=== PATIENT | female | born 1995 | race Caucasian/White ===

== ENCOUNTER 2018-11-23 20:00 | Emergency (ER) | payer SELFPAY ==
[2018-11-23] MEDS ORDERED: Ketorolac 30 MG/ML SDV IM ONE (22:05)
--- NOTE | 2018-11-23 22:09 | EDM.PDOC ---
<Ramona Simons - Last Filed: 11/23/18 22:53> ED HPI GENERAL MEDICAL PROBLEM - General Chief Complaint: Chest Pain Stated Complaint: CHEST PAIN Time Seen by Provider: 11/23/18 20:41 Source of Information: Reports: Patient History Limitations: Reports: No Limitations - History of Present Illness Onset: Today, Sudden Duration: Hour(s): (1 hour ago) Location: Reports: Chest Quality: Reports: Ache Severity: Mild Improves with: Reports: None Worsens with: Reports: None Associated Symptoms: Reports: Other (left arm pain). 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 [No Known Home Meds] 11/23/18 [History] Past Medical History - Past Health History Medical/Surgical History: Denies Medical/Surgical History Social & Family History - Tobacco Use Smoking Status *Q: Never Smoker - Caffeine Use Caffeine Use: Reports: Coffee - Recreational Drug Use Recreational Drug Use: No ED ROS GENERAL - Review of Systems Review Of Systems: See Below Constitutional: Reports: No Symptoms HEENT: Reports: No Symptoms Respiratory: Reports: No Symptoms Cardiovascular: Reports: Chest Pain. Denies: Blood Pressure Problem, Dyspnea on Exertion Endocrine: Reports: No Symptoms GI/Abdominal: Reports: No Symptoms : Reports: No Symptoms Musculoskeletal: Reports: No Symptoms Skin: Reports: No Symptoms Neurological: Reports: No Symptoms Psychiatric: Reports: Anxiety Hematologic/Lymphatic: Reports: No Symptoms Immunologic: Reports: No Symptoms ED EXAM, GENERAL - Physical Exam Exam: See Below Exam Limited By: No Limitations General Appearance: Alert, WD/WN, No Apparent Distress Ears: Normal External Exam, Normal Canal, Hearing Grossly Normal, Normal TMs Ear Exam: Bilateral Ear: Auricle Normal, Canal Normal, TM normal Nose: Normal Inspection, Normal Mucosa, No Blood Throat/Mouth: Normal Inspection, Normal Lips, Normal Teeth, Normal Gums, Normal Oropharynx, Normal Voice, No Airway Compromise Head: Atraumatic, Normocephalic Neck: Normal Inspection, Supple, Non-Tender, Full Range of Motion Respiratory/Chest: No Respiratory Distress, Lungs Clear, Normal Breath Sounds, No Accessory Muscle Use, Chest Non-Tender Cardiovascular: Normal Peripheral Pulses, Regular Rate, Rhythm, No Edema, No Gallop, No JVD, No Murmur, No Rub GI/Abdominal: Normal Bowel Sounds, Soft, Non-Tender, No Organomegaly, No Distention, No Abnormal Bruit, No Mass (Female) Exam: Deferred Back Exam: Normal Inspection, Full Range of Motion, NT Extremities: Normal Inspection, Normal Range of Motion, Non-Tender, Normal Capillary Refill, No Pedal Edema Neurological: Alert, Oriented, CN II-XII Intact, Normal Cognition, Normal Gait, Normal Reflexes, No Motor/Sensory Deficits Psychiatric: Normal Affect, Normal Mood Skin Exam: Warm, Dry, Intact, Normal Color, No Rash Lymphatic: No Adenopathy EKG INTERPRETATION EKG Date: 11/23/18 Time: 21:34 Rhythm: NSR [place]: Normal P-Wave: Present QRS: Normal ST-T: Normal QT: Normal Comparison: NA - No Prior EKG (NSR no stemi) Course - Vital Signs Last Recorded V/S: Last Vital Signs Temp 98.8 F 11/23/18 20:08 Pulse 93 11/23/18 20:08 Resp 24 H 11/23/18 20:08 BP 130/97 H 11/23/18 20:08 Pulse Ox - Orders/Labs/Meds Labs: Laboratory Tests 11/23/18 11/23/18 11/23/18 Range/Units 21:00 21:40 21:40 WBC 8.07 (3.98-10.04) K/mm3 RBC 4.32 (3.98-5.22) M/mm3 Hgb 13.3 (11.2-15.7) gm/L Hct 38.1 (34.1-44.9) % MCV 88.2 (79.4-94.8) fl MCH 30.8 (25.6-32.2) pg MCHC 34.9 (32.2-35.5) g/dl RDW Std Deviation 38.4 (36.4-46.3) fL Plt Count 324 (182-369) K/mm3 MPV 8.0 L (9.4-12.3) fl Neut % (Auto) 52.7 (34.0-71.1) % Lymph % (Auto) 35.4 (19.3-51.7) % [place] % (Auto) 10.2 (4.7-12.5) % Eos % (Auto) 1.4 (0.7-5.8) Baso % (Auto) 0.2 (0.1-1.2) % Neut # (Auto) 4.25 (1.56-6.13) K/mm3 Lymph # (Auto) 2.86 (1.18-3.74) K/mm3 [place] # (Auto) 0.82 H (0.24-0.36) K/mm3 Eos # (Auto) 0.11 (0.04-0.36) K/mm3 Baso # (Auto) 0.02 (0.01-0.08) K/mm3 Sodium 142 (136-145) mEq/L Potassium 3.6 (3.5-5.1) mEq/L Chloride 106 (98-107) mEq/L Carbon Dioxide 27 (21-32) mEq/L Anion Gap 12.6 (5-15) BUN 12 (7-18) mg/dL Creatinine 0.6 (0.55-1.02) mg/dL Est Cr Clr Drug Dosing 102.95 mL/min Estimated GFR (MDRD) > 60 (>60) mL/min BUN/Creatinine Ratio 20.0 H (14-18) Glucose 92 (74-106) mg/dL Calcium 9.3 (8.5-10.1) mg/dL Total Bilirubin 0.3 (0.2-1.0) mg/dL AST 13 L (15-37) U/L ALT 18 (14-59) U/L Alkaline Phosphatase 66 (46-116) U/L Troponin I < 0.017 (0.00-0.056) ng/mL Total Protein 7.4 (6.4-8.2) g/dl Albumin 3.8 (3.4-5.0) g/dl Globulin 3.6 gm/dL Albumin/Globulin Ratio 1.1 (1-2) Urine HCG, Qual Negative (NEGATIVE) Meds: Medications Discontinued Medications Generic Name Dose Route Start Last Admin Trade Name Freq PRN Reason Stop Dose Admin Ketorolac Tromethamine 30 mg 11/23/18 22:05 11/23/18 22:22 Toradol IM 11/23/18 22:06 30 mg ONETIME ONE Administration - Re-Assessments/Exams Free Text/Narrative Re-Assessment/Exam: 11/23/18 22:41 [id number] 23 y/o female presented to ER with cc chest pain that started a hour ago. Her labs were unremarkable. Her EKG revealed NSR. Her preliminary x-ray reveals no acute findings, if there is a change after radiologist reads it I will contact patient. I am not certain why she is having chest pain. I will discharge home with a 48 hour Holter monitor. I instructed patient to follow up with [facility] clinic [phone] next week. I instructed her to return to the ER for any new or acute worsening symptoms. Patient verbalized understanding and is comfortable with plan for discharge Departure - Departure Time of Disposition: 22:50 Disposition: Home, Self-Care 01 Condition: Good Clinical Impression: Atypical chest pain Instructions: Nonspecific Chest Pain, [id number], Chest Wall Pain Referrals: PCP,None [Primary Care Provider] - Forms: ED Department Discharge Additional Instructions: Follow up with [facility] clinic next week [phone] <Jamie Fermin L - Last Filed: 11/25/18 11:32> Course - Re-Assessments/Exams Free Text/Narrative Re-Assessment/Exam: 11/25/18 11:31 Patient was evaluated by DAREN Cotton. I agree with hx, exam, findings, treatment plan as documented. I also did discuss sx, evaluate patient, discuss treatment plan with patient.
--- NOTE | 2018-11-24 07:01 | CR ---
Chest: Portable view of the chest was obtained. Comparison: No prior chest x-ray. Heart size and mediastinum are normal. Lungs are clear. Slight scoliosis is present. Impression: 1. Nothing acute is seen. Diagnostic code #1
== END 2018-11-23 22:58 | disposition home or self-care (01) ==
LOC: JD.ED 20:00
DX: R07.89 Other chest pain (principal)
CPT/HCPCS: 36415; 71045; 80053; 81025; 84484; 85025; 93005; 93225; 93226; 96372; 99284; J1885; 93010

== ENCOUNTER 2019-02-07 02:21 | Emergency (ER) | payer MEDICAID, OTHER ==
--- NOTE | 2019-02-07 02:35 | EDM.PDOC ---
ED HPI GENERAL MEDICAL PROBLEM - General Chief Complaint: Gastrointestinal Problem Stated Complaint: INTENSE LOWER ABDOMINAL PAIN VOMITTING Time Seen by Provider: 02/07/19 02:38 Source of Information: Reports: Patient History Limitations: Reports: No Limitations - History of Present Illness INITIAL COMMENTS - FREE TEXT/NARRATIVE: 23-year-old female presents to the ED with acute onset of severe abdominal cramping pain associated with passage of clear bloody stools. Associated intermittent nausea and vomiting due to the intensity of the pain. Emesis has been bilious. Associated fever and chills. She states symptoms seem to start shortly after eating a [employer] sandwich yesterday afternoon. Started having abdominal cramps and diarrhea about 1600 hrs. and gradually become. Bloody stools. She estimated she's gone about 20 times. She denies any recent antibiotic usage in the last 6 weeks. Denies any travel outside of the country in the last month. Denies possibility of . She reports menses is due to start tomorrow. No previous abdominal surgery. Her mother has a history of inflammatory bowel disease but patient has only had some bleeding per rectum with constipated stools in the past. She does not have any reptiles/amphibians for pets. 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 No nail she knows is ill at this time. Has deep constant abdominal pain which is crampy with occasional worsening of the cramps before she has to have a bowel movement. Feels lightheaded and dizzy like she might faint. Onset: Sudden Onset Date: 02/06/19 Onset Time: 15:00 Duration: Hour(s): Location: Reports: Abdomen Quality: Reports: Ache, Sharp, Stabbing, Other Severity: Severe (Strong colicky component to the abdominal pain) Improves with: Reports: None Worsens with: Reports: None Context: Reports: Other (Possibility of foodborne illness after eating [employer] sandwich yesterday at lunch). 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: Other (see below) (None.) Lower Abdomen Pain Score (Numeric/FACES): 8 - Related Data Allergies Allergy/AdvReac Type Severity Reaction Status Date / Time No Known Allergies Allergy Verified 02/07/19 02:33 Home Meds: Home Meds Dicyclomine [Bentyl] 20 mg PO Q6H PRN #8 tablet 02/07/19 [Rx] Ondansetron [Zofran] 4 mg BUCCAL Q6H PRN #5 tab 02/07/19 [Rx] Past Medical History - Past Health History Medical/Surgical History: Denies Medical/Surgical History Social & Family History - Caffeine Use Caffeine Use: Reports: Coffee - Living Situation & Occupation Living situation: Reports: Single Occupation: Employed ED ROS GENERAL - Review of Systems Review Of Systems: See Below Constitutional: Reports: Fever, Chills, Malaise, Weakness, Fatigue, Decreased Appetite, Other (Lightheaded and dizzy) HEENT: Reports: Other Respiratory: Reports: No Symptoms Cardiovascular: Reports: No Symptoms Endocrine: Reports: No Symptoms GI/Abdominal: Reports: Abdominal Pain, Diarrhea (Severe bloody diarrhea with clumps of), Decreased Appetite, Hematochezia, Melena, Nausea, Vomiting. Denies : Constipation ( clots.), Distension, Flatus, Hematemesis : Reports: No Symptoms Musculoskeletal: Reports: No Symptoms Skin: Reports: No Symptoms Neurological: Reports: Dizziness, Difficulty Walking (Do the intensive abdominal pain.), Weakness. Denies: Numbness, Syncope (Lightheadedness and feeling faint.), Tingling Psychiatric: Reports: No Symptoms Hematologic/Lymphatic: Reports: No Symptoms Immunologic: Reports: No Symptoms ED EXAM, GI/ABD - Physical Exam Exam: See Below Exam Limited By: No Limitations General Appearance: Alert, WD/WN, Moderate Distress, Other (Pulse ox is 97% on room air) Eyes: Bilateral: Normal Appearance Throat/Mouth: Other Head: Atraumatic, Normocephalic (Tongue is mildly dry and coated) Neck: Normal Inspection, Supple, Non-Tender, Full Range of Motion. No: Lymphadenopathy (L), Lymphadenopathy (R) Respiratory/Chest: No Respiratory Distress, Lungs Clear, Normal Breath Sounds, No Accessory Muscle Use, Chest Non-Tender Cardiovascular: Normal Peripheral Pulses, Regular Rate, Rhythm, No Edema, No Murmur, No Rub GI/Abdominal Exam: Guarding, Tender (Hyperactive bowel sounds in all 4 quadrants. Tenderness to percussion), Abnormal Bowel Sounds, Other (No surgical scars). No: Rigid ( particularly left lower quadrant and suprapubically with guarding.), Rebound Back Exam: Normal Inspection, Full Range of Motion. No: CVA Tenderness (L), CVA Tenderness (R) Extremities: Normal Inspection, Normal Range of Motion, Non-Tender Neurological: Alert, Oriented, CN II-XII Intact, Normal Cognition Psychiatric: Other Skin Exam: Warm, Dry (Appears ill.), Intact, Normal Color, No Rash Course - Vital Signs Last Recorded V/S: Last Vital Signs Temp 36.6 C 02/07/19 02:28 Pulse 88 02/07/19 02:28 Resp 20 02/07/19 02:28 BP 111/87 02/07/19 02:28 Pulse Ox 97 02/07/19 02:28 - Orders/Labs/Meds Orders: Active Orders 24 hr Category Date Time Status C DIFFICILE BY PCR W/NAP1 [MOLEC] Stat Lab 02/07/19 02:45 Ordered CULTURE STOOL + SHIGATOX [RM] Stat Lab 02/07/19 02:44 Ordered WBC, STOOL [OP] Stat Lab 02/07/19 02:44 Ordered Dextrose 5%-0.9% NaCl [Dextrose 5%-Normal Saline] 1,000 Med 02/07/19 02:45 Active ml IV ASDIRECTED Isolation [COMM] Stat Oth 02/07/19 02:45 Ordered Medication Orders Dextrose/Sodium Chloride (Dextrose 5%-Normal Saline) 1,000 mls @ 999 mls/hr IV ASDIRECTED MANDY Last Admin: 02/07/19 02:55 Dose: 999 mls/hr Labs: Laboratory Tests 02/07/19 02/07/19 02/07/19 Range/Units 02:55 02:55 02:55 WBC 11.16 H (3.98-10.04) K/mm3 RBC 5.06 (3.98-5.22) M/mm3 Hgb 15.0 D (11.2-15.7) gm/L Hct 43.0 (34.1-44.9) % MCV 85.0 (79.4-94.8) fl MCH 29.6 (25.6-32.2) pg MCHC 34.9 (32.2-35.5) g/dl RDW Std Deviation 37.3 (36.4-46.3) fL Plt Count 340 (182-369) K/mm3 MPV 8.1 L (9.4-12.3) fl Neutrophils % (Manual) 58 (40-60) % Band Neutrophils % 0 (0-10) % Lymphocytes % (Manual) 33 (20-40) % Atypical Lymphs % 0 % Monocytes % (Manual) 6 (2-10) % Eosinophils % (Manual) 2 (0.7-5.8) % Basophils % (Manual) 1 (0.1-1.2) Platelet Estimate Adequate RBC Morph Comment Normal Sodium 139 (136-145) mEq/L Potassium 3.6 (3.5-5.1) mEq/L Chloride 103 (98-107) mEq/L Carbon Dioxide 25 (21-32) mEq/L Anion Gap 14.6 (5-15) BUN 13 (7-18) mg/dL Creatinine 0.7 (0.55-1.02) mg/dL Est Cr Clr Drug Dosing 88.25 mL/min Estimated GFR (MDRD) > 60 (>60) mL/min BUN/Creatinine Ratio 18.6 H (14-18) Glucose 101 (74-106) mg/dL Calcium 9.1 (8.5-10.1) mg/dL Total Bilirubin 1.0 (0.2-1.0) mg/dL AST 22 (15-37) U/L ALT 24 (14-59) U/L Alkaline Phosphatase 66 (46-116) U/L C-Reactive Protein < 0.2 (<1.0) mg/dL Total Protein 8.1 (6.4-8.2) g/dl Albumin 4.3 (3.4-5.0) g/dl Globulin 3.8 gm/dL Albumin/Globulin Ratio 1.1 (1-2) HCG, Qual Negative (NEGATIVE) Meds: Medications Generic Name Dose Route Start Last Admin Trade Name Freq PRN Reason Stop Dose Admin Dextrose/Sodium Chloride 1,000 mls @ 999 mls/hr 02/07/19 02:45 02/07/19 02:55 Dextrose 5%-Normal Saline IV 999 mls/hr ASDIRECTED MANDY Administration Discontinued Medications Generic Name Dose Route Start Last Admin Trade Name Freq PRN Reason Stop Dose Admin Dicyclomine HCl 20 mg 02/07/19 04:35 Bentyl PO 02/07/19 04:36 ONETIME ONE Hydromorphone HCl 0.5 mg 02/07/19 02:44 02/07/19 02:57 Dilaudid IVPUSH 02/07/19 02:45 0.5 mg ONETIME ONE Administration Metoclopramide HCl 7.5 mg 02/07/19 02:44 02/07/19 02:56 Reglan IVPUSH 02/07/19 02:45 7.5 mg ONETIME ONE Administration Ondansetron HCl 4 mg 02/07/19 04:35 Zofran Odt PO 02/07/19 04:36 ONETIME ONE - Radiology Interpretation Free Text/Narrative:: 23-year-old female presents to the ED with acute onset of diffuse abdominal cramping pain starting about 1500 hrs. yesterday afternoon. Initially developed nausea vomiting and then diarrhea and then bloody diarrhea. She states she's had at least 20 diarrhea stools in the last 10 have been.pur blood with clots. Associated diffuse lower abdominal cramping pain. Sensation of fever and chills although afebrile at time of presentation. Lightheaded dizzy and feels faint. Says has been primarily biliary and she reports seems to be more related to the intensity abdominal pain. Possibility of foodborne illness as she ate [employer] sandwich about noon today yesterday. She has no exposure to reptiles or amphibians that could give her Salmonella or Shigella. 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 Strongly suspect dysentery from foodborne illness. Plan IV D5 normal saline at open. Given Dilaudid 0.5 mg IV with Reglan 7.5 mg IV for relief of nausea vomiting. Stools will be collected for culture and sensitivity and for Clostridium difficile. - Re-Assessments/Exams Free Text/Narrative Re-Assessment/Exam: 02/07/19 03:50 Patient reports she is feeling better. Marked improvement in the abdominal cramping pain. Unfortunately she has not been able to produce any stool samples. 02/07/19 03:53 Lab is back. Total white count is mildly elevated at 11.16 with 58% neutrophils and no band cells reported. Hemoglobin is 15.0 with hematocrit of 43.0. Platelet count is 340,000. Sodium is 139 with a potassium of 3.6. Chloride is 1 of 3 with a bicarbonate 25. Anion gap is 14.6. BUN is 13 with a creatinine of 0.7. GFR is greater than 60. BUN/creatinine ratio is 18.6. Glucose is 101 with a calcium of 9.1. Liver function is normal. C-reactive protein is less than 0.2. Total protein is 8.1 with albumin fraction of 4.3 Serum HCG is negative. 02/07/19 04:36 she is continued to have mild lower bowel cramping pain but has not been able to produce a bowel movement. Nausea is gone. Going to discharge her with a Zofran tablet in case she needs it for further nausea relief upon going home. She'll be given Bentyl 20 mg by mouth now for relief of abdominal cramping pain. She will be sent home with collection chamber for stools 2 and C. difficile to return to the hospital laboratory once they become available. No will be given to excuse her from the workplace today and tomorrow. She continues to have bloody diarrhea greater than 2 more days then she will return to the ED or follow up with personal care physician. She'll be on a clear fluid diet such as Gatorade/Powerade and advance as we discussed. She will be very free and no apple or grape juice until stools are formed backup. Departure - Departure Time of Disposition: 04:37 Disposition: Home, Self-Care 01 Condition: Fair Clinical Impression: Dysentery, Nausea and vomiting in adult Abdominal pain Qualifiers: Abdominal location: generalized Qualified Code(s): R10.84 - Generalized abdominal pain - Discharge Information *PRESCRIPTION DRUG MONITORING PROGRAM REVIEWED*: Not Applicable *COPY OF PRESCRIPTION DRUG MONITORING REPORT IN PATIENT CHASE: Not Applicable Prescriptions: Dicyclomine [Bentyl] 20 mg PO Q6H PRN #8 tablet PRN Reason: Abdominal cramps/diarrhea Ondansetron [Zofran] 4 mg BUCCAL Q6H PRN #5 tab PRN Reason: nausea or vomiting Instructions: Food Poisoning, [id number] Referrals: PCP,None [Primary Care Provider] - Forms: ED Department Discharge, ED Return to Work/School Form Additional Instructions: Evaluation the emergency room tonight due to acute onset of diffuse abdominal pain with diarrhea and then. Bloody diarrhea with clots. Associated nausea and vomiting due to the intensity of the abdominal cramping pain. This started approximately 3-4 hours after eating at [employer]. Possibility of foodborne illness exists which we called dysentery due to blood within the diarrhea. Unfortunately were not able to produce a stool sample while in the ED. Labs done during the ED evaluation were all normal. He received a liter of IV fluids and medication called Reglan to stop nausea and Dilaudid 0.5 mg for relief of abdominal cramping pain. Also before discharge were given Bentyl 20 mg by mouth for further relief of abdominal cramping pain. Still wishing to try and collect stool samples at home and return him to the lab the hospital for testing. Is bacterial infection as the cause dysentery or self-limited and get better on their own without antibiotic treatments. However if symptoms persist and sometimes antibodies are indicated. Suggest off work today and tomorrow and no relief provided in this regard. Diet is to be clear fluids primarily Gatorade/ Powerade 5-6 ounces sipped per hour. When hungry try soda crackers first. May use Jell-O at any time. May advance to bread with GM on it later today and then soup such as turkey rice/chicken noodle later this evening. Suggest no dairy products or apple juice or grape juice until stools are formed back up. If you' re still having bloody diarrhea in the next 24-36 hours return to the ED. May use Zofran 4 mg under the tongue every 4-6 hours necessary for relief of further nausea or vomiting. Bentyl 20 mg may used every 6 hours as necessary for relief of abdominal cramping pain. - My Orders Last 24 Hours: My Active Orders 02/07/19 02:44 CULTURE STOOL + SHIGATOX [RM] Stat WBC, STOOL [OP] Stat 02/07/19 02:45 C DIFFICILE BY PCR W/NAP1 [MOLEC] Stat Dextrose 5%-0.9% NaCl [Dextrose 5%-Normal Saline] 1,000 ml IV ASDIRECTED Isolation [COMM] Stat - Assessment/Plan Last 24 Hours: My Active Orders 02/07/19 02:44 CULTURE STOOL + SHIGATOX [RM] Stat WBC, STOOL [OP] Stat 02/07/19 02:45 C DIFFICILE BY PCR W/NAP1 [MOLEC] Stat Dextrose 5%-0.9% NaCl [Dextrose 5%-Normal Saline] 1,000 ml IV ASDIRECTED Isolation [COMM] Stat
[2019-02-07] MEDS ORDERED: HYDROmorphone 1 MG/ML Syringe IVPUSH ONE (02:44)
[2019-02-07] MEDS ORDERED: Metoclopramide 10 MG/2 ML SDV IVPUSH ONE (02:44)
[2019-02-07] MEDS ORDERED: Dextrose 5%-0.9% NaCl 1,000 ML IV SCH (02:45)
[2019-02-07] MEDS ORDERED: Dicyclomine 10 MG Cap PO ONE (04:35)
[2019-02-07] MEDS ORDERED: Ondansetron 4 MG Tab.DIS PO ONE (04:35)
== END 2019-02-07 04:52 | disposition home or self-care (01) ==
LOC: JD.ED 02:21
DX: A09 Infectious gastroenteritis and colitis, unspecified (principal)
CPT/HCPCS: 36415; 80053; 84703; 85007; 85027; 86140; 87046; 87427; 87493; 89055; 96361; 96374; 96375; 99284; A9270; J1170; J2765; J7042

== ENCOUNTER 2019-03-05 22:25 | Emergency (ER) | payer MEDICAID ==
--- NOTE | 2019-03-05 23:35 | EDM.PDOC ---
ED HPI GENERAL MEDICAL PROBLEM - General Chief Complaint: VIGOUREUX PR[employer] Problem Stated Complaint: VAGINAL BLEEDING 10DAY Time Seen by Provider: 03/05/19 23:13 Source of Information: Reports: Patient, RN Notes Reviewed, Other (Friend) History Limitations: Reports: No Limitations - History of Present Illness INITIAL COMMENTS - FREE TEXT/NARRATIVE: The patient states that she has regular menstrual periods. Her last menstrual period was from 02/10/2019 through 02/13/2019, which was normal for her. She then began having heavy vaginal bleeding on 02/24/2019, which has persisted. She states that she has had suprapubic and bilateral pelvic cramps on and off for the past 5-6 days, but that they have become worse over the past 2 days. She had nausea and one episode of emesis last night, associated with pelvic cramps. She states that she felt better afterwards. She denies having lower back pain. No urinary symptoms. No recent fever. No prior similar symptoms. The patient states that she has felt lightheaded when upright since yesterday, 03/04/2019. The patient states that she is "sort of" sexually active - she recently broke up with her boyfriend. She states that they did not use a contraceptive. The patient has not taken a home test. The patient does not have a PCP or Banking Representative. 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), Other (See Below) (Ovarian cysts) - Past Surgical History Female Surgical History: Reports: Dilitation & Evacuation Social & Family History - Tobacco Use Smoking Status *Q: Never Smoker - Caffeine Use Caffeine Use: Reports: Coffee - Alcohol Use Alcohol Use History: Yes Alcohol Use Frequency: Rarely - Recreational Drug Use Recreational Drug Use: Yes Drug Use in Last 12 Months: Yes Recreational Drug Type: Reports: Marijuana/Hashish (smokes on occcasion) - Living Situation & Occupation Living situation: Reports: Single, Alone 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 ED EXAM, RENAL/ - Physical Exam Exam: See Below Exam Limited By: No Limitations General Appearance: Alert, WD/WN, No Apparent Distress Eye Exam: Bilateral Eye: EOMI, Normal Inspection Ears: Normal External Exam, Hearing Grossly Normal Nose: Normal Inspection Throat/Mouth: Normal Inspection, Normal Lips, Normal Voice, No Airway Compromise Head: Atraumatic, Normocephalic Neck: Normal Inspection, Full Range of Motion Respiratory/Chest: No Respiratory Distress, Lungs Clear, Normal Breath Sounds, No Accessory Muscle Use Cardiovascular: Normal Peripheral Pulses, Regular Rate, Rhythm, No Edema, No Gallop, No JVD, No Murmur, No Rub GI/Abdominal: Normal Bowel Sounds, Soft, No Organomegaly, No Distention, No Abnormal Bruit, No Mass, Tender (Significant, suprapubically, but palpation elsewhere induces pain in the pelvis, as well.) (Female) Exam: Deferred Rectal (Female) Exam: Deferred Back Exam: Normal Inspection, Full Range of Motion. No: CVA Tenderness (L), CVA Tenderness (R) Extremities: Normal Inspection, Normal Range of Motion, No Pedal Edema, Normal Capillary Refill Neurological: Alert, Oriented, Normal Cognition, No Motor/Sensory Deficits Psychiatric: Normal Affect Skin Exam: Warm, Dry, Intact, Normal Color, No Rash Course - Vital Signs Last Recorded V/S: Last Vital Signs Temp 36.9 C 03/05/19 22:34 Pulse 88 03/05/19 22:34 Resp 16 03/05/19 22:34 BP 119/81 03/05/19 22:34 Pulse Ox 100 03/05/19 22:34 Orthostatic Blood Pressure [ 112/79 Standing] Orthostatic Blood Pressure [ 114/78 Sitting] Orthostatic Blood Pressure [ 121/75 Supine] - Orders/Labs/Meds Orders: Active Orders 24 hr Category Date Time Status Orthostatic Vital Signs [RC] STAT Care 03/05/19 23:30 Active Transvaginal Non OB [US] Stat Exams 03/06/19 23:30 Taken Labs: Laboratory Tests 03/05/19 03/05/19 03/05/19 Range/Units 22:45 22:45 23:45 WBC 11.02 H (3.98-10.04) K/mm3 RBC 4.34 (3.98-5.22) M/mm3 Hgb 12.7 D (11.2-15.7) gm/L Hct 36.7 (34.1-44.9) % MCV 84.6 (79.4-94.8) fl MCH 29.3 (25.6-32.2) pg MCHC 34.6 (32.2-35.5) g/dl RDW Std Deviation 35.5 L (36.4-46.3) fL Plt Count 376 H (182-369) K/mm3 MPV 7.9 L (9.4-12.3) fl Neutrophils % (Manual) 75 H (40-60) % Band Neutrophils % 0 (0-10) % Lymphocytes % (Manual) 20 (20-40) % Atypical Lymphs % 0 % Monocytes % (Manual) 5 (2-10) % Eosinophils % (Manual) 0 L (0.7-5.8) % Basophils % (Manual) 0 L (0.1-1.2) Platelet Estimate Adequate Plt Morphology Comment Normal RBC Morph Comment Normal Sodium (136-145) mEq/L Potassium (3.5-5.1) mEq/L Chloride (98-107) mEq/L Carbon Dioxide (21-32) mEq/L Anion Gap (5-15) BUN (7-18) mg/dL Creatinine (0.55-1.02) mg/dL Est Cr Clr Drug Dosing mL/min Estimated GFR (MDRD) (>60) mL/min BUN/Creatinine Ratio (14-18) Glucose (74-106) mg/dL Calcium (8.5-10.1) mg/dL Total Bilirubin (0.2-1.0) mg/dL AST (15-37) U/L ALT (14-59) U/L Alkaline Phosphatase (46-116) U/L Total Protein (6.4-8.2) g/dl Albumin (3.4-5.0) g/dl Globulin gm/dL Albumin/Globulin Ratio (1-2) Urine Color Yellow (Yellow) Urine Appearance Clear (Clear) Urine pH 7.0 (5.0-8.0) Ur Specific [place] 1.020 (1.005-1.030) Urine Protein 1+ H (Negative) Urine Glucose (UA) Negative (Negative) Urine Ketones 1+ H (Negative) Urine Occult Blood 3+ H (Negative) Urine Nitrite Negative (Negative) Urine Bilirubin Negative (Negative) Urine Urobilinogen 2.0 H (0.2-1.0) Ur Leukocyte Esterase Negative (Negative) Urine RBC 0-5 (0-5) /hpf Urine WBC 0-5 (0-5) /hpf Ur Epithelial Cells 0-5 (0-5) /hpf Urine Bacteria Few (FEW) /hpf Urine Mucus Not seen (FEW) /hpf Urine HCG, Qual Negative (NEGATIVE) 03/05/19 Range/Units 23:45 WBC (3.98-10.04) K/mm3 RBC (3.98-5.22) M/mm3 Hgb (11.2-15.7) gm/L Hct (34.1-44.9) % MCV (79.4-94.8) fl MCH (25.6-32.2) pg MCHC (32.2-35.5) g/dl RDW Std Deviation (36.4-46.3) fL Plt Count (182-369) K/mm3 MPV (9.4-12.3) fl Neutrophils % (Manual) (40-60) % Band Neutrophils % (0-10) % Lymphocytes % (Manual) (20-40) % Atypical Lymphs % % Monocytes % (Manual) (2-10) % Eosinophils % (Manual) (0.7-5.8) % Basophils % (Manual) (0.1-1.2) Platelet Estimate Plt Morphology Comment RBC Morph Comment Sodium 134 L (136-145) mEq/L Potassium 3.8 (3.5-5.1) mEq/L Chloride 99 (98-107) mEq/L Carbon Dioxide 26 (21-32) mEq/L Anion Gap 12.8 (5-15) BUN 13 (7-18) mg/dL Creatinine 0.7 (0.55-1.02) mg/dL Est Cr Clr Drug Dosing 88.25 mL/min Estimated GFR (MDRD) > 60 (>60) mL/min BUN/Creatinine Ratio 18.6 H (14-18) Glucose 98 (74-106) mg/dL Calcium 8.8 (8.5-10.1) mg/dL Total Bilirubin 0.7 (0.2-1.0) mg/dL AST 14 L (15-37) U/L ALT 19 (14-59) U/L Alkaline Phosphatase 90 (46-116) U/L Total Protein 7.9 (6.4-8.2) g/dl Albumin 3.5 (3.4-5.0) g/dl Globulin 4.4 gm/dL Albumin/Globulin Ratio 0.8 L (1-2) Urine Color (Yellow) Urine Appearance (Clear) Urine pH (5.0-8.0) Ur Specific [place] (1.005-1.030) Urine Protein (Negative) Urine Glucose (UA) (Negative) Urine Ketones (Negative) Urine Occult Blood (Negative) Urine Nitrite (Negative) Urine Bilirubin (Negative) Urine Urobilinogen (0.2-1.0) Ur Leukocyte Esterase (Negative) Urine RBC (0-5) /hpf Urine WBC (0-5) /hpf Ur Epithelial Cells (0-5) /hpf Urine Bacteria (FEW) /hpf Urine Mucus (FEW) /hpf Urine HCG, Qual (NEGATIVE) Meds: Medications Discontinued Medications Generic Name Dose Route Start Last Admin Trade Name Freq PRN Reason Stop Dose Admin Hydromorphone HCl 1 mg 03/06/19 02:06 03/06/19 02:17 Dilaudid IVPUSH 03/06/19 02:07 1 mg ONETIME ONE Administration Ondansetron HCl 4 mg 03/06/19 02:06 03/06/19 02:18 Zofran IVPUSH 03/06/19 02:07 4 mg ONETIME ONE Administration - Re-Assessments/Exams Free Text/Narrative Re-Assessment/Exam: 03/05/19 23:32 The patient has pelvic pain and tenderness, and 10 days vaginal bleeding. The cause of this is not immediately evident, but I am most concerned about a hemorrhagic ovarian cyst with bleeding into the pelvis. I have ordered orthostatics, along with blood work and, given the location of her pain, a urinalysis, even though she denies any urinary symptoms. A urine test was already checked, and is negative. I have ordered a transvaginal pelvic ultrasound. 03/06/19 00:10 The patient is not orthostatic. 03/06/19 02:07 Notified by Margarette RODARTE that the patient's pelvic pain was made much worse by the transvaginal ultrasound. The patient has returned to her room from ultrasound, however, we do not have the ultrasound results yet. I have ordered IV Dilaudid and Zofran. 03/06/19 03:07 Transvaginal pelvic ultrasound is read by [facility] as: 1. No acute findings. No evidence of ovarian portion. [sic] 2. Unremarkable uterus. Normal endometrium. No myometrial mass. 3. Bilateral mildly enlarged ovaries. Intermediate 3.6 cm left ovarian complex mass with questionable small amount of blood flow versus artifact on color Doppler. Suggest comparison with prior imaging, if available. As solid mass cannot be excluded, suggest VIGOUREUX PRINTER follow-up and consider repeat exam in the presence of a radiologist to better assess this mass. 03/06/19 03:[address] Carlos Manuel Patiño at 03:11. He suspects that the mass is probably a hemorrhagic cyst, which is the cause of the patient's pain. He does not feel that the patient requires surgery. He feels that she is safe for discharge home with a prescription for [place], [id number] ibuprofen, and outpatient follow-up. 03/06/19 03:20 Test results discussed with the patient and her friend. As above, I will discharge the patient home with a prescription for [place] and Zofran, have her take [id number] ibuprofen, and have her follow-up with Dr. Patiño. Departure - Departure Time of Disposition: 03:21 Disposition: Home, Self-Care 01 Condition: Good Clinical Impression: Hemorrhagic cyst of left ovary - Discharge Information *PRESCRIPTION DRUG MONITORING PROGRAM REVIEWED*: Not Applicable *COPY OF PRESCRIPTION DRUG MONITORING REPORT IN PATIENT CHASE: Not Applicable Prescriptions: Acetaminophen/HYDROcodone [[place] 325-5 MG] 1 - 2 tab PO Q6H PRN #14 tablet PRN Reason: Pain (Severe 7-10) Ondansetron [Zofran ODT] 1 tab PO Q8H PRN #10 tab.dis PRN Reason: Nausea/Vomiting Referrals: Carlos Manuel Patiño MD [Physician] - Forms: ED Department Discharge Additional Instructions: You were seen in the emergency room for continuous vaginal bleeding since 2018, along with pelvic pain, nausea, and vomiting. Workup in the ER included blood work, a urinalysis, a urine test, positional blood pressure checks, and an ultrasound of your pelvis. Your ultrasound found what is likely a hemorrhagic cyst on your left ovary. This is likely the cause of your pain. The remainder of your workup was unremarkable. You are not . You do not have a urinary tract infection. You are not anemic. You are not dehydrated. Take [id number] ibuprofen, 2-3 tablets (400-600 mg) every 8 hours, with food, as needed for pain. You may also take 1-2 tablets of the opioid pain reliever [place] up to every 6 hours, as needed for pain not relieved by ibuprofen. If you take [place], do not drive or operate heavy machinery for 10 hours afterwards. [place] may cause constipation, so consider taking a stool softener. Dissolve one tablet of the anti-nausea medicine Zofran on your tongue up to every 8 hours, as needed for nausea/vomiting. Follow-up with the Banking Representative Dr. Carlos Manuel Patiño at the next available appointment. If any other problems, please do not hesitate to return to the ER. - My Orders Last 24 Hours: My Active Orders 03/05/19 23:30 Orthostatic Vital Signs [RC] STAT 03/06/19 23:30 Transvaginal Non OB [US] Stat - Assessment/Plan Last 24 Hours: My Active Orders 03/05/19 23:30 Orthostatic Vital Signs [RC] STAT 03/06/19 23:30 Transvaginal Non OB [US] Stat
[2019-03-06] MEDS ORDERED: HYDROmorphone 1 MG/ML Syringe IVPUSH ONE (02:06)
[2019-03-06] MEDS ORDERED: Ondansetron 4 MG/2 ML SDV IVPUSH ONE (02:06)
--- NOTE | 2019-03-07 10:42 | US ---
Pelvic ultrasound: Multiple real-time images were obtained transvaginally. Comparison: No prior pelvic imaging. Uterus is anteverted. Incidental nabothian cyst is noted. No myometrial abnormality is identified. Endometrial thickness is normal at 5.3 mm. complicated area seen within the right ovary measuring about 1.9 cm. Additional complicated area is seen within the left ovary and measures 3.0 cm. No free fluid is seen. Measurements: Uterus: Length 8.1 cm, AP height 3.3 cm,transverse width 4.5 cm Right ovary: 5.1 x 2.0 x 3.1 cm Left ovary: 3.6 x 3.1 x 3.0 cm Impression: 1. Small complicated area within each ovary. Recommend repeat pelvic ultrasound study in 3-4 months to further evaluate for persistence or resolution. This follow-up would occur in May or June,. 2. Nabothian cyst which is felt to be incidental. 3. Pelvic ultrasound is otherwise unremarkable. Diagnostic code #3 I agree with preliminary report from [facility], finalized on 03/06/19, 4:05 AM Central Time
== END 2019-03-06 03:40 | disposition home or self-care (01) ==
LOC: JD.ED 22:25
DX: N83.202 Unspecified ovarian cyst, left side (principal)
CPT/HCPCS: 36415; 76830; 80053; 81001; 81025; 85007; 85027; 99284; J1170; J2405

== ENCOUNTER 2019-03-08 23:26 | Emergency (ER) | payer SELFPAY ==
[2019-03-08] MEDS ORDERED: Lactated Ringers 1,000 ML IV SCH (23:45)
--- NOTE | 2019-03-08 23:45 | EDM.PDOC ---
ED HPI GENERAL MEDICAL PROBLEM - General Chief Complaint: Abdominal Pain Stated Complaint: abdominal pain Time Seen by Provider: 03/08/19 23:39 - History of Present Illness INITIAL COMMENTS - FREE TEXT/NARRATIVE: 23-year-old female presents emergency room with abdominal and pelvic pain. She was seen here several days ago thought to have a hemorrhagic ovarian cyst. She followed up with gynecology who believes that this might be a chronic been treated chlamydial infection. However, ultrasound at her visit several days ago showed a couple complicated areas within each ovary. It is recommended that she have follow-up this fall the ultrasound. Since that time the patient was followed up with gynecology. The patient's vaginal bleeding has gone from fairly heavy to fairly light over the last couple of days. The patient is taking Flagyl and doxycycline started by her avionics systems repairer she's also using Chetopa for pain. She has a hard time taking them and keeping them down with her abdominal pain. She denies fevers or chills some nausea Upper Abdomen Pain Score (Numeric/FACES): 10 - Related Data Allergies Allergy/AdvReac Type Severity Reaction Status Date / Time No Known Allergies Allergy Verified 03/08/19 23:40 Home Meds: Home Meds Doxycycline [Vibramycin] 03/08/19 [History] Hydrocodone/Acetaminophen [Hydrocodon-Acetaminophen 5-325] 03/08/19 [History] metroNIDAZOLE [Flagyl] 03/08/19 [History] Past Medical History - Past Health History Medical/Surgical History: Denies Medical/Surgical History [employer] History: Reports: Therapeutic (x 1), Other (See Below) (Ovarian cysts) - Past Surgical History Female Surgical History: Reports: Dilitation & Evacuation Social & Family History - Caffeine Use Caffeine Use: Reports: Coffee - Living Situation & Occupation Living situation: Reports: Single, Alone 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 Denies: Constipation, Diarrhea : Denies: Flank Pain, Frequency, Urgency Musculoskeletal: Reports: No Symptoms Skin: Reports: No Symptoms Neurological: Reports: No Symptoms ED EXAM, GENERAL - Physical Exam Exam: See Below Exam Limited By: No Limitations General Appearance: Alert, No Apparent Distress Head: Atraumatic, Normocephalic Neck: Normal Inspection, Supple, Non-Tender, Full Range of Motion Respiratory/Chest: No Respiratory Distress, Lungs Clear, Normal Breath Sounds Cardiovascular: Regular Rate, Rhythm, No Edema, No Murmur GI/Abdominal: Normal Bowel Sounds, Other (He is tender hard to examine even the weight of my stethoscope caused discomfort for her) Extremities: Normal Inspection, Non-Tender, No Pedal Edema Neurological: Alert, Oriented, Normal Cognition Course - Vital Signs Last Recorded V/S: Last Vital Signs Temp 37.3 C 03/08/19 23:35 Pulse 89 03/08/19 23:35 Resp 18 03/08/19 23:35 BP 123/87 03/08/19 23:35 Pulse Ox 100 03/08/19 23:35 - Orders/Labs/Meds Orders: Active Orders 24 hr Category Date Time Status Transvaginal Non OB [US] Stat Exams 03/09/19 00:02 Taken Lactated Ringers [Ringers, Lactated] 1,000 ml Med 03/08/19 23:45 Active IV ASDIRECTED Medication Orders Lactated Ringer's (Ringers, Lactated) 1,000 mls @ 150 mls/hr IV ASDIRECTED MANDY Last Admin: 03/09/19 00:08 Dose: 150 mls/hr Labs: Laboratory Tests 03/09/19 03/09/19 03/09/19 Range/Units 00:10 00:10 01:00 WBC 10.26 H (3.98-10.04) K/mm3 RBC 4.23 (3.98-5.22) M/mm3 Hgb 12.2 (11.2-15.7) gm/L Hct 36.1 (34.1-44.9) % MCV 85.3 (79.4-94.8) fl MCH 28.8 (25.6-32.2) pg MCHC 33.8 (32.2-35.5) g/dl RDW Std Deviation 35.6 L (36.4-46.3) fL Plt Count 499 H (182-369) K/mm3 MPV 8.1 L (9.4-12.3) fl Neutrophils % (Manual) 80 H (40-60) % Band Neutrophils % 0 (0-10) % Lymphocytes % (Manual) 13 L (20-40) % Atypical Lymphs % 0 % Monocytes % (Manual) 4 (2-10) % Eosinophils % (Manual) 2 (0.7-5.8) % Basophils % (Manual) 1 (0.1-1.2) Platelet Estimate Adequate RBC Morph Comment Normal Sodium 140 (136-145) mEq/L Potassium 3.4 L (3.5-5.1) mEq/L Chloride 101 (98-107) mEq/L Carbon Dioxide 26 (21-32) mEq/L Anion Gap 16.4 H (5-15) BUN 10 (7-18) mg/dL Creatinine 0.7 (0.55-1.02) mg/dL Est Cr Clr Drug Dosing TNP Estimated GFR (MDRD) > 60 (>60) mL/min BUN/Creatinine Ratio 14.3 (14-18) Glucose 90 (74-106) mg/dL Calcium 9.3 (8.5-10.1) mg/dL Total Bilirubin 0.4 (0.2-1.0) mg/dL AST 14 L (15-37) U/L ALT 19 (14-59) U/L Alkaline Phosphatase 91 (46-116) U/L Total Protein 8.2 (6.4-8.2) g/dl Albumin 3.3 L (3.4-5.0) g/dl Globulin 4.9 gm/dL Albumin/Globulin Ratio 0.7 L (1-2) Urine Color Yellow (Yellow) Urine Appearance Slt cloudy H (Clear) Urine pH 8.5 H (5.0-8.0) Ur Specific [place] 1.020 (1.005-1.030) Urine Protein 1+ H (Negative) Urine Glucose (UA) Negative (Negative) Urine Ketones Negative (Negative) Urine Occult Blood Trace-intact H (Negative) Urine Nitrite Negative (Negative) Urine Bilirubin Negative (Negative) Urine Urobilinogen 4.0 H (0.2-1.0) Ur Leukocyte Esterase Negative (Negative) Urine RBC 0-5 (0-5) /hpf Urine WBC 0-5 (0-5) /hpf Ur Epithelial Cells 0-5 (0-5) /hpf Amorphous Sediment Moderate H (NOT SEEN) /hpf Urine Bacteria Few (FEW) /hpf Urine Mucus Few (FEW) /hpf Urine HCG, Qual (NEGATIVE) 03/09/19 Range/Units 01:00 WBC (3.98-10.04) K/mm3 RBC (3.98-5.22) M/mm3 Hgb (11.2-15.7) gm/L Hct (34.1-44.9) % MCV (79.4-94.8) fl MCH (25.6-32.2) pg MCHC (32.2-35.5) g/dl RDW Std Deviation (36.4-46.3) fL Plt Count (182-369) K/mm3 MPV (9.4-12.3) fl Neutrophils % (Manual) (40-60) % Band Neutrophils % (0-10) % Lymphocytes % (Manual) (20-40) % Atypical Lymphs % % Monocytes % (Manual) (2-10) % Eosinophils % (Manual) (0.7-5.8) % Basophils % (Manual) (0.1-1.2) Platelet Estimate RBC Morph Comment Sodium (136-145) mEq/L Potassium (3.5-5.1) mEq/L Chloride (98-107) mEq/L Carbon Dioxide (21-32) mEq/L Anion Gap (5-15) BUN (7-18) mg/dL Creatinine (0.55-1.02) mg/dL Est Cr Clr Drug Dosing Estimated GFR (MDRD) (>60) mL/min BUN/Creatinine Ratio (14-18) Glucose (74-106) mg/dL Calcium (8.5-10.1) mg/dL Total Bilirubin (0.2-1.0) mg/dL AST (15-37) U/L ALT (14-59) U/L Alkaline Phosphatase (46-116) U/L Total Protein (6.4-8.2) g/dl Albumin (3.4-5.0) g/dl Globulin gm/dL Albumin/Globulin Ratio (1-2) Urine Color (Yellow) Urine Appearance (Clear) Urine pH (5.0-8.0) Ur Specific [place] (1.005-1.030) Urine Protein (Negative) Urine Glucose (UA) (Negative) Urine Ketones (Negative) Urine Occult Blood (Negative) Urine Nitrite (Negative) Urine Bilirubin (Negative) Urine Urobilinogen (0.2-1.0) Ur Leukocyte Esterase (Negative) Urine RBC (0-5) /hpf Urine WBC (0-5) /hpf Ur Epithelial Cells (0-5) /hpf Amorphous Sediment (NOT SEEN) /hpf Urine Bacteria (FEW) /hpf Urine Mucus (FEW) /hpf Urine HCG, Qual Negative (NEGATIVE) Meds: Medications Generic Name Dose Route Start Last Admin Trade Name Freq PRN Reason Stop Dose Admin Lactated Ringer's 1,000 mls @ 150 mls/hr 03/08/19 23:45 03/09/19 00:08 Ringers, Lactated IV 150 mls/hr ASDIRECTED MANDY Administration Discontinued Medications Generic Name Dose Route Start Last Admin Trade Name Freq PRN Reason Stop Dose Admin Morphine Sulfate 4 mg 03/08/19 23:53 03/09/19 00:08 Morphine IVPUSH 03/08/19 23:54 Not Given ONETIME ONE Morphine Sulfate Confirm 03/08/19 23:58 03/09/19 00:08 Morphine Administered 03/08/19 23:59 4 mg Dose Administration 4 mg IV .STK-MED ONE Morphine Sulfate 4 mg 03/09/19 02:08 Morphine IVPUSH 03/09/19 02:09 ONETIME ONE Morphine Sulfate 4 mg 03/09/19 02:14 03/09/19 02:17 Morphine IV 03/09/19 02:15 4 mg ONETIME ONE Administration Ondansetron HCl 4 mg 03/08/19 23:53 03/09/19 00:08 Zofran IVPUSH 03/08/19 23:54 4 mg ONETIME ONE Administration - Re-Assessments/Exams Free Text/Narrative Re-Assessment/Exam: 03/09/19 03:27 Finally got the report from [facility]. The cyst seen on the ultrasound a few days ago are no longer visualized and she has free fluid in the pelvis could be blood products. She probably did ruptured ovarian cyst since the time of her last ultrasound. I did discuss the findings of this with the patient she would like to go home now she thinks she has a prescription for Zofran at home which would be my recommendation so she can continue to take her medications and keep them down. She should follow-up with Dr. Patiño later this week. Departure - Departure Time of Disposition: 03:29 Disposition: Home, Self-Care 01 Clinical Impression: Hemorrhagic cysts of both ovaries - Discharge Information Referrals: Carlos Manuel Patiño MD [Primary Care Provider] - Forms: ED Department Discharge Additional Instructions: Return to the emergency room with any questions problems worsening symptoms. Follow-up with Dr. Patiño later this week. Take your medications as directed including the Zofran this will keep it possible for you to be able to keep your other medications down. - My Orders Last 24 Hours: My Active Orders 03/08/19 23:45 Lactated Ringers [Ringers, Lactated] 1,000 ml IV ASDIRECTED 03/09/19 00:02 Transvaginal Non OB [US] Stat - Assessment/Plan Last 24 Hours: My Active Orders 03/08/19 23:45 Lactated Ringers [Ringers, Lactated] 1,000 ml IV ASDIRECTED 03/09/19 00:02 Transvaginal Non OB [US] Stat
[2019-03-08] MEDS ORDERED: Morphine 4 MG/ML Syringe IVPUSH ONE (23:53)
[2019-03-08] MEDS ORDERED: Ondansetron 4 MG/2 ML SDV IVPUSH ONE (23:53)
[2019-03-09] MEDS ORDERED: Morphine 4 MG/ML Syringe IVPUSH ONE (02:08)
--- NOTE | 2019-03-09 10:03 | US ---
Pelvic ultrasound: Multiple real-time images were obtained transabdominally and transvaginally. Comparison: Previous pelvic ultrasound study of 03/06/19. Moderate amount of free fluid seen within the pelvis which is slightly complicated most likely representing blood from ruptured hemorrhagic ovarian cyst. Previous cysts on recent ultrasound within each ovary are not seen on current exam. Right ovary shows follicles and appears normal. Left ovary contains an echogenic area measuring about 1.5 cm. This most likely represents residual collapsed hemorrhagic cyst although follow-up will be recommended. Uterus is anteverted and shows no myometrial abnormality. Endometrial thickness is 5 mm. Measurements: Uterus: Length 6.5 cm, AP height 4.4 cm,transverse width 3.3 cm Right ovary: 4.6 x 2.8 x 2.3 cm Left ovary: 3.9 x 2.9 x 2.7 cm Impression: 1. Moderate amount of complicated fluid within the pelvis most likely representing blood. Finding most likely represents hemorrhagic cyst rupture. 2. Hyperechoic finding within the left ovary measuring 1.5 cm most likely representing residual collapsed hemorrhagic cyst, recommend repeat ultrasound to confirm if this resolves in 2-3 months. 3. Pelvic ultrasound is otherwise unremarkable. Note: Ruptured hemorrhagic cysts can occasionally continue to bleed and if patient continues to have worsening symptoms, repeat ultrasound could be obtained to make sure the amount of blood within the pelvis does not increase. Diagnostic code #3 I agree with preliminary report from [facility], finalized on 03/09/19, 4:12 AM Central Time
== END 2019-03-09 03:46 | disposition home or self-care (01) ==
LOC: JD.ED 23:26
DX: N83.202 Unspecified ovarian cyst, left side (principal); N83.201 Unspecified ovarian cyst, right side
CPT/HCPCS: 36415; 76830; 80053; 81001; 81025; 85007; 85027; 96361; 96374; 96375; 96376; 99284; J2270; J2405; J7120